=== PATIENT | male | born 1950 | race Asian ===

== ENCOUNTER 2023-10-23 07:28 | Day surgery (SDC) | payer OTHER, SELFPAY ==
[2023-10-23] VITALS (19 sets, daily range): BP systolic 112–138; BP diastolic 64–80; BMI 27.0
[2023-10-23] MEDS: NSS 227 ML IV (07:56)
[2023-10-23] MEDS: LOW STRENGTH ASPIRIN 81 MG PO (07:57)
[2023-10-23 08:11] LABS: Glucose - Point of Care 122 mg/dl (70-99)
--- NOTE | 2023-10-23 10:56 | ITS.CL.CATH ---
[facility] - Catheterization
Cardiac Catheterization
Procedure Report:
CARDIAC CATHETERIZATION REPORT
Date of Procedure: 10/23/2023
Referring: Daniel Keen MD
Indication: Angina with abnormal stress test
HEMODYNAMIC DATA
AO: 129/68
LV: 129/20
LEFT VENTRICULOGRAPHY: Hyperdynamic left ventricular wall motion with EF greater than 70%
CORONARY ANGIOGRAPHY
Dominance: Right
Left Main: Normal
LAD: Mild luminal irregularities
Circumflex: Normal
RCA: There is an ostial stenosis which is angiographically ambiguous in severity. There is 60 mmHg dampening of the arterial pressure upon engagement with a 6 [place] diagnostic catheter. The remainder of the dominant RCA has trivial luminal
disease.
FloWire assessment: At the conclusion the diagnostic study, we evaluated the ostial RCA stenosis with FloWire. Heparin was used for anticoagulation. Normalization was performed in the aorta. The guide catheter then engaged to the RCA resulting in
significant pressure dampening. The Aula 7 flow wire was advanced into the distal RCA and the guide catheter was carefully withdrawn back into the aorta. An aortic position was verified angiographically. iFR measurements were 0.91, 0.91, 0.89,
and 0.91. These are equivocal. Accordingly, we proceeded with FFR evaluation using an infusion of adenosine at 140 mcg/kg/min. Resting FFR was 0.92. Following adenosine, the FFR fell to 0.79. This is consistent with flow-limiting disease. A
decision was then made to proceed with ostial RCA intervention.
Angioplasty: Predilatation of the ostial RCA was accomplished with a 2.5 x 8 trek balloon to 12 dilcia. This resulted in complete balloon expansion. We then placed a 3.5 x 12 Xience PREM carefully to entirely cover the ostium of the vessel. The stent
was deployed at 14 dilcia then postdilated with a 3.5 NC trek to 17 dilcia. The final angiographic result was outstanding. Additionally, with the guide catheter within the stent there was no pressure dampening confirming the ostium was successfully
covered by the stent. There were no procedural complications. This patient is already on Plavix and was given an additional 300 mg at the procedure conclusion.
Closure Device: None-the procedure was performed via the right radial artery. The Wayne's test was normal prior to the procedure.
Radiation (mGy): 322
DAP (cm2.Gy): 29.3
Fluoroscopy time: 7.3 minutes
CONCLUSIONS
1: Elevated LVEDP
2: Dynamic left ventricular function with EF greater than 70%
3. Single-vessel CAD with ostial RCA stenosis which was iFR equivocal and FFR positive for flow-limiting stenosis
4. Successful placement of ostial 3.5 x 12 Xience PREM with outstanding angiographic result
5. Recommend dual antiplatelet therapy for 12 months then long-term aspirin monotherapy
Copy to: Daniel Keen MD, Praneeth Galeas MD
Kt Caldwell MD, [facility], [facility]
[2023-10-23] MEDS: NSS 1000 IV (11:14)
--- NOTE | 2023-10-23 15:44 | W.PN.UPDATE ---
Update Note
Progress Note Update
Pt seen post RCA PCI. Right radial cath site without ht/bleeding, non tender. OOB to chair. Post EKG NSR 60s, no acute changes. To remain on uninterrupted DAPT w/asa, plavix as before. Hold metformin 48h post cath. Cardiac rehab consulted. Followup
with Dr. Keen as scheduled. Home today if cath site/tele remain stable.
[2023-10-24 07:56] LABS: ACT-LR - POC > 397 Seconds (116-155)
== END 2023-10-23 15:25 | disposition home or self-care (01) ==
LOC: CATH 07:28
PROVIDERS: ATTENDING PHYSICIAN Internal Medicine Cardiovascular Disease
DX: I25.119 Atherosclerotic heart disease of native coronary artery with unspecified angina pectoris (principal); Z79.02 Long term (current) use of antithrombotics/antiplatelets; Z79.82 Long term (current) use of aspirin
CPT/HCPCS: 82962; 85347; 93005; 93458; 93571; C1725; C1769; C1874; C1894; C9600; J0153; Q9967